=== PATIENT | female | born 1960 | race Caucasian/White ===

== ENCOUNTER 2017-07-07 05:24 | Inpatient (IN) | payer OTHER ==
[2017-07-01 13:09] LABS: HEMATOCRIT 37.4 % (37.0-47.0); HEMOGLOBIN 13.2 gm/dL (12.0-15.0); MCH 31.7 pg (26.0-34.0); MCHC 35.3 g/dL (28.0-37.0); MCV 89.7 fL (80.0-100.0); RBC 4.17 mil/uL (4.20-5.00); RDW 12.6 % (10.5-14.5); WBC 5.1 thou/uL (4.0-11.0)
[2017-07-01 13:14] LABS: URINE BILIRUBIN NEGATIVE (Negative); URINE BLOOD NEGATIVE (Negative); URINE COLOR YELLOW; URINE GLUCOSE-RANDOM* NEGATIVE (Negative); URINE KETONES NEGATIVE (Negative); URINE PROTEIN (DIPSTICK) NEGATIVE (Negative); URINE SPECIFIC GRAVITY >= 1.030 (1.003-1.035); URINE UROBILINOGEN 0.2 E.U./dl (0.2-1.0)
[2017-07-01 13:16] LABS: URINE LEUKOCYTES-REFLEX 1+ (Negative)
[2017-07-01 13:19] LABS: ALBUMIN 3.9 g/dL (3.4-5.0); CALCIUM 9.2 mg/dL (8.5-10.1); CREATININE 0.7 mg/dL (0.6-1.0); POTASSIUM 3.6 mmol/L (3.5-5.1)
[2017-07-01 13:21] LABS: CASTS None Seen /LPF (None Seen); CRYSTALS None Seen /LPF (None Seen); SQUAMOUS 0-3 Few /LPF (0-3); URINE RBC None Seen /HPF (0-2); URINE WBC-REFLEX 0-5 Rare /HPF (0-5)
[2017-07-01 13:22] LABS: PROTIME 10.7 Seconds (9.3-11.4)
[2017-07-07] VITALS (9 sets, daily range): BP systolic 108–145; BP diastolic 47–97
[~2017-07-07] VITALS: Ht 162.6 cm; Wt 74.4 kg
--- NOTE | ~2017-07-07 | EKG ---
[address] [address] ELECTROCARDIOGRAM REPORT Name: DEV COLLADO Room #: PRE IN [facility]#: [id number] Admission: Attend Phys: Hermelindo Crabtree MD Discharge: Date of : 56 Report #: [id number] THIS REPORT FOR: //name// [facility] Test Date: 2017-07-01 Test Time: 13:03:31 Pat Name: DEV COLLADO Department: Room: Gender: F Tile Ditcher: chinmay : 1960 Requested By: Hermelindo Crabtree Order Number: [id number] MD: Alvin Pedraza Measurements Intervals [place] Rate: 67 P: 53 WY: 205 QRS: -10 QRSD: 81 T: 41 QT: 404 QTc: 427 Interpretive Statements Sinus rhythm Borderline prolonged [place] interval Inferior infarct, old Anterior infarct, old Compared to ECG 11/20/2015 12:00:40 No significant changes Electronically Signed On 07-02-2017 12:39:35 CDT by Alvin Pedraza [email or web address] <ELECTRONICALLY SIGNED> By: Alvin Pedraza MD, [facility] 07/02/17 1239 1303 1303 Alvin Pedraza MD, [facility] /EPI
--- NOTE | ~2017-07-07 | O ---
[facility] [place] [address] OPERATIVE REPORT Name: DEV COLLADO Room #: 407-P ADM IN M.R.#: [id number] Admission: 07/07/17 Attend Phys: Hermelindo Crabtree MD Discharge: Date of : 56 Report #: [id number] THIS REPORT FOR: //name// CC: JN Crabtree DATE OF SERVICE: 07/07/2017 PREOPERATIVE DIAGNOSIS: Right knee degenerative joint disease, severe. POSTOPERATIVE DIAGNOSIS: Right knee degenerative joint disease, severe. PROCEDURE: Right total knee arthroplasty. SURGEON: Hermelindo Crabtree MD RN UROLOGY: YUE Joseph ANESTHETIC: General. INDICATIONS: See hospital H and P. IMPLANTS UTILIZED: Used a DePuy PFC knee system. We used a size 3 cruciate retaining femoral component, size 3 tibial tray with a 12.5 mm spacer and a 38 mm oval dome patella. DESCRIPTION OF PROCEDURE: After adequate general anesthesia had been obtained, the patient's right lower extremity was prepped and draped in the usual meticulous sterile fashion. Limb was exsanguinated with gravity and tourniquet inflated to 350 torr. Anterior midline incision was made, subQ divided sharply. Hemostasis obtained with electrocautery. A medial parapatellar incision was made. Infrapatellar fat pad excised. Medial release performed. The drill was used to drill the distal femur. This was enlarged, irrigated and suctioned, and the intramedullary guide placed the full length of the femur. Distal femoral cutting guide pinned the appropriate height, distal femoral cut was made. The measuring device determined a size 3 was appropriate size for this patient. We marked the distal femur, impacted the cutting guide into position and the anterior, posterior and chamfer cuts were made. Rongeur was used to remove additional osteophytes. At this time, the ACL was transected, tibia translated anteriorly, menisci were excised. Drill was used to drill central portion of the tibia. This hole was enlarged, irrigated, suctioned, and the intramedullary guide placed along the tibia. Proximal tibial cutting guide placed at appropriate height. Proximal [facility] [address] [place] [address] OPERATIVE REPORT Name: DEV COLLADO Room #: 407-P ADM IN M.R.#: [id number] Admission: 07/07/17 Attend Phys: Hermelindo Crabtree MD Discharge: Date of : 56 Report #: [id number] tibia cut was made. The 3 tray gave us the best coverage on the tibia. We then put the trial components in position and with a 12.5 spacer, he had the best flexion and extension gap and did have full extension. Patella was then measured, cutting guide clamped into place, patellar cut was made, 38 template gave us the best coverage. Pedicles were drilled, trial component put in position, it tracked normally. At this time, the knee was taken through several cycles of flexion, extension to determine optimal tibial tray rotation. The rotation was marked. Distal femur drilled. Trial components were removed. Tibial keel cuts were made. The knee was irrigated with both pulse lavage and antibiotic irrigation. Bone plugs were placed proximal tibia and distal femur. The cement was vacuum mixed and when it reached the appropriate consistency, the knee was thoroughly dried, the tibial tray was cemented in place. Excess cement was removed. The polyethylene was impacted in place and the femur impacted in place and the knee was taken out to 30 degrees of flexion with uniform compression placed across components. Patellar button was then cemented into place and again excess cement was removed. The irrigation was placed in the wound and allowed to rest in the wound until the cement fully cured. When it had done so, the knee was irrigated, dried thoroughly, and inspected. Drains were placed superolaterally both deep and superficial. The retinacular layer closed with combination of interrupted fgexkv-al-xksrj #1 Vicryl as well as running #1 Tevdek. SubQ closed with 2-0 Monocryl, skin closed with rosalie. Sterile compressive dressing applied. Tourniquet deflated. <ELECTRONICALLY SIGNED> By: Hermelindo Crabrtee MD 07/08/17 2149 0844 0907 Hermelindo Crabtree MD /nt
[~2017-07-07 05:24] MED LIST: ALEVE220 MG PO; CENTRUM SILVER1 EAC2 PO; HYDROCHLOROTH12.5 M1 PO; HYDROCHLOROTHIA25 M2 PO; LOSARTAN POTAS100 MG PO; NORCO 5-325 TA1 EACH PO; PERCOCET 10-321 EACH PO; STOOL SOFTENER100 MG PO; ULTRA-LIGHT RO1 EACH; VALTREX 500 MG500 MG PO; VITAMIN D-32000 UNIT PO; XARELTO10 MG PO
[2017-07-08 04:07] LABS: HEMATOCRIT 32.9 % (37.0-47.0); HEMOGLOBIN 11.7 gm/dL (12.0-15.0); MCH 32.1 pg (26.0-34.0); MCHC 35.4 g/dL (28.0-37.0); MCV 90.7 fL (80.0-100.0); RBC 3.63 mil/uL (4.20-5.00); RDW 12.8 % (10.5-14.5); WBC 10.5 thou/uL (4.0-11.0)
[2017-07-08 05:57] VITALS: BP 101/54
[2017-07-08 11:35] VITALS: BP 111/55
[2017-07-08 12:19] VITALS: BP 111/50
[2017-07-08 16:00] VITALS: BP 124/57
[2017-07-08 19:29] VITALS: BP 116/52
[2017-07-08 20:37] VITALS: BP 116/52
[2017-07-09] VITALS: BP 123/59
[2017-07-09 04:00] VITALS: BP 123/59
[2017-07-09 04:07] VITALS: BP 123/59
[2017-07-09 05:56] LABS: HEMATOCRIT 31.8 % (37.0-47.0); MCH 31.9 pg (26.0-34.0); MCHC 34.5 g/dL (28.0-37.0); MCV 92.5 fL (80.0-100.0); RBC 3.44 mil/uL (4.20-5.00); RDW 12.8 % (10.5-14.5); WBC 7.8 thou/uL (4.0-11.0)
[2017-07-09 08:25] VITALS: BP 112/53
[2017-07-09] MEDS ORDERED: XARELTO10 MG PO (10:32)
[2017-07-09 15:55] VITALS: BP 111/55
[2017-07-09 16:07] VITALS: BP 111/55
== END 2017-07-09 18:22 | disposition home or self-care (01) | DRG 470 ==
LOC: 4N 05:24 → TBA 05:24 → PRE 08:11 → 4N 11:26 → ENTRNSPT 07-09 16:48 → 4N 07-09 18:22
PROVIDERS: Orthopaedic Surgery
PROC: 0SRC0J9 Replacement of Right Knee Joint with Synthetic Substitute, Cemented, Open Approach (ICD-10-PCS; principal; 2017-07-07)
DX: M17.11 Unilateral primary osteoarthritis, right knee (principal); I10 Essential (primary) hypertension; M48.00 Spinal stenosis, site unspecified; Z96.642 Presence of left artificial hip joint; Z87.891 Personal history of nicotine dependence; Z79.899 Other long term (current) drug therapy
CPT/HCPCS: 10790; 50010; 50101; 50415; 50612; 50954; 51130; 51225; 51320; 51412; 51771; 52001; 53000; 53078; 53364; 56525; 56527; 62110; 62900; 70005

== ENCOUNTER → 2019-09-08 | Outpatient (CLI) | payer OTHER ==
[2019-09-08 07:38] LABS: HEMATOCRIT 41.3 % (37.0-47.0); HEMOGLOBIN 14.2 gm/dL (12.0-15.0); MCH 31.8 pg (26.0-34.0); MCHC 34.4 g/dL (28.0-37.0); MCV 92.4 fL (80.0-100.0); RBC 4.46 mil/uL (4.20-5.00); RDW 12.5 % (10.5-14.5); WBC 4.4 thou/uL (4.0-11.0)
[2019-09-08 08:11] LABS: INR 1.1
[2019-09-08 08:14] LABS: CALCIUM 9.7 mg/dL (8.5-10.1); CREATININE 0.7 mg/dL (0.6-1.0); POTASSIUM 3.9 mmol/L (3.5-5.1)
--- NOTE | 2019-09-08 09:21 | CATHLAB ---
[facility] [address] [place] [address] INVASIVE PROCEDURE REPORT Name: TOBIASDEV Room #: [id number] Admission: 09/08/19 Attend Phys: Alvin Pedraza, Discharge: Date of : 56 Report #: [id number] THIS REPORT FOR: //name// APPROVED REPORT Study performed: 09/08/2019 08:15:42 Patient Details Patient Status: Out-Patient Room #: The patient is a 58 year-old female Event Personnel Alvin Pedraza Clipping Marker, Mj Aguilar RN, Veronica Yap Jackson, Sherra RTKandy Monitor Procedures Performed 84209 Initial Mod Sed Same Phys/QHP Gr5y [id number] Indication Pericardial tamponade Procedure Narrative The Substernal Area^ was infiltrated with 2% Lidocaine subcutaneous anesthesia. A PINNACLE 6FR Sheath #[id number] sheath was inserted into the Substernal Area^. Coronary angiography was performed using coronary diagnostic catheters. The patient tolerated the procedure well and there were no complications associated with the procedure. A 6 FR PIGTAIL WAS USED TO PULL FLUID FROM HEART. TOTAL VOLUME WAS 370 ML. Sent for studies Intraoperative Conscious Sedation Sedation start time: 7:56 Case end Time: 8:44 Fentanyl 100 mcg Versed 1.5 mg Fluoro Time: 4.00 minutes Dose: DAP 39.00 cGycm2 4 mGy Conclusion See dicatation [facility] [address] [place] [address] INVASIVE PROCEDURE REPORT Name: DEV COLLADO Room #: [facility]#: [id number] Admission: 09/08/19 Attend Phys: Alvin Pedraza, Discharge: Date of : 56 Report #: [id number] 1. Successful removal of 370 mL of serosanguineous fluid from the pericardial space <ELECTRONICALLY SIGNED> By: Alvin Pedraza MD, FACC 09/08/19919 9 9 Alvin Pedraza MD, FACC /INF
--- NOTE | 2019-09-08 09:44 | 2DMMODE ---
[address] [address] 2 D/M-MODE ECHOCARDIOGRAM Name: TOBIASDEV CATIA Room #: REG CL [facility]#: [id number] Admission: 09/08/19 Attend Phys: Alvin Pedraza, Discharge: Date of : 56 Report #: [id number] THIS REPORT FOR: //name// APPROVED REPORT Study performed: 09/08/2019 08:00:45 EXAM: Comprehensive 2D, Doppler, and color-flow Echocardiogram Patient Location: director of cath lab Room #: 1 Status: routine BSA: 1.69 Rhythm: NSR Other Information Study Quality: Excellent Indications Pericardial Effusion Left Ventricle The left ventricle is normal size. There is normal left ventricular wall thickness. The left ventricular systolic function is normal. The left ventricular ejection fraction is within the normal range. LVEF is 55-60%. Right Ventricle The right ventricle is normal size. The right ventricular systolic function is normal. Atria Left atrium is at the upper limits of normal. The right atrium size is normal. Aortic Valve The aortic valve is normal in structure. Mitral Valve The mitral valve is normal in structure. Tricuspid Valve The tricuspid valve is normal in structure. Pulmonic Valve [address] [address] 2 D/M-MODE ECHOCARDIOGRAM Name: DEV COLLADO Room #: REG [facility]#: [id number] Admission: 09/08/19 Attend Phys: Alvin Pedraza, Discharge: Date of : 56 Report #: [id number] The pulmonary valve is normal in structure. Great Vessels The aortic root is normal in size. Pericardium There was a large effusion noted at the start of the study. Interval complete removal of the pericardial effusion. <Conclusion> Limited study performed as part of a pericardiocentesis The left ventricular systolic function is normal. LVEF is 55-60%. There was a large effusion noted at the start of the study. Interval complete removal of the pericardial effusion. <ELECTRONICALLY SIGNED> By: Alvin Pedraza MD, [facility] 09/08/1944 3 Alvin Pedraza MD, [facility] /INF
[2019-09-08 13:29] LABS: BF NUCLEATED CELLS 793; BF RBC 1966
[2019-09-08 13:31] LABS: CLARITY CLOUDY; COLOR YELLOW; SOURCE LEFT CHEST; TOTAL VOLUME 35 mL
[2019-09-08 15:10] LABS: BF MACROPHAGE 12; BF NEUTROPHILS 2
--- NOTE | 2019-09-08 17:17 | EKG ---
[place] [address] [facility] [place] [address] ELECTROCARDIOGRAM REPORT Name: DEV COLLADO Room #: REG [facility]#: [id number] Admission: 09/08/19 Attend Phys: Alvin Pedraza MD, Discharge: Date of : 56 Report #: [id number] THIS REPORT FOR: //name// [facility] Test Date: 2019-09-08 Test Time: 07:21:36 Pat Name: DEV COLLADO Department: Room: Gender: F Scientific Programmer: Glenys GONZALEZ : 1960 Requested By: Alvin Pedraza Order Number: [id number] MD: Alvin Pedraza Measurements Intervals [place] Rate: 63 P: -9 DE: 202 QRS: -7 QRSD: 76 T: 46 QT: 415 QTc: 425 Interpretive Statements Sinus rhythm Borderline prolonged [place] interval Anterior infarct, old Compared to ECG 07/01/2017 13:03:31 No significant changes Electronically Signed On 09-08-2019 17:16:44 PRESIDING STEWARD by Alvin Pedraza [email or web address] <ELECTRONICALLY SIGNED> By: Alvin Pedraza MD, [facility] 09/08/19 1716 0 0 Alvin Pedraza MD, [facility] /EPI
--- NOTE | 2019-09-09 07:50 | CATHLAB ---
[facility] [address] [place] [address] INVASIVE PROCEDURE REPORT Name: DEV COLLADO Room #: REG CL [facility]#: [id number] Admission: 09/08/19 Attend Phys: Alvin Pedraza, Discharge: Date of : 56 Report #: [id number] THIS REPORT FOR: //name// CC: Alvin Mast PROCEDURE: Pericardiocentesis. INDICATIONS: Tamponade. DESCRIPTION OF PROCEDURE: The potential benefits and risks of the procedure were discussed with the patient and her . Full written and informed consent was obtained. The patient was brought into the catheterization suite where her subxiphoid region was prepped and draped in a sterile fashion. She was sedated with intravenous Versed. 1% Xylocaine was used as local anesthetic. A 6-Uzbek sheath was placed in the pericardial space by the modified Seldinger technique. Fluoroscopy and echocardiogram confirmed placement. 370 mL of serosanguineous fluid was removed. The pericardial space was drained dry by echocardiogram confirmation. The fluid was sent for studies and cytology, cultures. She tolerated the procedure well. SUMMARY: Successful pericardiocentesis removing 370 mL of serosanguineous fluid. <ELECTRONICALLY SIGNED> By: Alvin Pedraza MD, [facility] 09/09/19 0750 0907 1124 Alvin Pedraza MD, FACC /nt
[2019-09-09 13:12] LABS: BODY FLUID ALBUMIN 3.1 g/dL (Not Estab.); BODY FLUID AMYLASE 54 U/L (()); BODY FLUID GLUCOSE 86 mg/dL (()); BODY FLUID LDH 276 IU/L (()); BODY FLUID PROTEIN 4.7 g/dL (())
[2019-09-10 08:36] LABS: SOURCE CHEST
--- NOTE | 2019-09-13 13:07 | PATH ---
[facility] [place] [address] PATHOLOGY RPT PROCEDURE Name: DEV COLLADO Room #: REG [facility]#: [id number] Admission: 09/08/19 Date of : 56 Discharge: Report #: [id number] Path Case #: [id number] Note LCA Accession Number: [id number] TESTS RESULT FLAG UNITS REF RANGE LAB Clinician Provided Cytology Information No. of containers..01 Other (Miscellaneous) Source: [A] 01 CHEST FLUID DIAGNOSIS: [A] 02 CHEST FLUID POSITIVE FOR MALIGNANT CELLS. ADENOCARCINOMA IS PRESENT. METASTATIC CARCINOMA IS PRESENT. THIS INTERPRETATION INCLUDES EVALUATION OF A CELL BLOCK. Comment: Multiple stains were performed on the percardial fluid obtained (case number, [id number]; please refer to a separate report for complete details). Based on the stains, the malignant cells which morphologically resemble the cells identified in the pericardial fluid likely represent a metastatic adenocarcinoma of lung origin. Dr. Noel has seen this case and concurs with the diagnosis rendered. Findings of this case were telephoned to Dr. Rachel Thompson's nurse at 11:05 AM on 09/12/19. Pathologist ICD10: 02 J91.0 Signed out by: 02 Domonique Billings MD, Pathologist NPI- [id number] Performed by: Clara Sandra, Electroencephalographic Technician ([facility]) Gross description: 01 10 ML, ORANGE, CLOUDY /LCS 10/25/1840 0000 Local FLAG LEGEND: L-Low Normal,H-High Normal,LL-Alert Low,HH-Alert High <-Panic Low,>-Panic High,A-Abnormal,AA-Critical Abnormal Performed at: [facility] [address] [place] [address] Jj Daugherty MD, 02 [facility] [address] [address] Domonique Billings MD, Specimen Comment: A courtesy copy of this report has been sent to [phone], [facility] [address] [place] [address] PATHOLOGY RPT PROCEDURE Name: DEV COLLADO Room #: REG ROMAINE Kiser#: [id number] Admission: 09/08/19 Date of : 56 Discharge: Report #: [id number] Path Case #: [id number] Specimen Comment: [phone] Specimen Comment: [id number] Specimen Comment: Report sent to / DR SALCEDO Performed at: [address], [place], [place] [id number] MD Jj Daugherty MD Phone: [phone]
--- NOTE | 2019-09-13 13:07 | PATH ---
[facility] [place] [address] PATHOLOGY RPT PROCEDURE Name: DEV COLLADO Room #: REG [facility].#: [id number] Admission: 09/08/19 Date of : 56 Discharge: Report #: [id number] Path Case #: [id number] Note LCA Accession Number: [id number] TESTS RESULT FLAG UNITS REF RANGE LAB Clinician Provided Cytology Information No. of containers..01 Other (Miscellaneous) Source: [A] 01 PERICARDIAL FLUID DIAGNOSIS: [A] 02 PERICARDIAL FLUID POSITIVE FOR MALIGNANT CELLS. METASTATIC CARCINOMA IS PRESENT. THIS INTERPRETATION INCLUDES EVALUATION OF A CELL BLOCK. Comment: Based on the stains performed on the pericardial fluid, (please refer to a separate report for details)the malignancy involving the pericardial fluid likely is a metastatic adenocarcinoma of lung origin. Dr. Noel has seen this case and concurs with my diagnosis. Pathologist ICD10: 02 I31.3 Signed out by: 02 Domonique Billings MD, Pathologist NPI- [id number] Performed by: Clara Sandra, Heart Nurse ([facility]) Gross description: 01 25 ML, ORANGE, CLOUDY /LCS 10/25/1840 0000 Local FLAG LEGEND: L-Low Normal,H-High Normal,LL-Alert Low,HH-Alert High <-Panic Low,>-Panic High,A-Abnormal,AA-Critical Abnormal Performed at: 01 [facility] [address] [place] [address] Jj Daugherty MD, [address] [address] Domonique Billings MD, Specimen Comment: A courtesy copy of this report has been sent to [phone] Specimen Comment: [phone] Specimen Comment: [id number] Specimen Comment: Report sent to / DR SALCEDO [address] [address] PATHOLOGY RPT PROCEDURE Name: DEV COLLADO Room #: REG ROMAINE Kiser#: [id number] Admission: 09/08/19 Date of : 56 Discharge: Report #: [id number] Path Case #: [id number] Performed at: 01 [facility] [place] [address], [place], [place] [id number] MD Jj Daugherty MD Phone: [phone]
--- NOTE | 2019-09-13 13:58 | PATH ---
[facility] [address] [place] [address] [place] [address] PATHOLOGY RPT PROCEDURE Name: DEV COLLADO Room #: REG ROMAINE Gonzalez.Kandy.#: [id number] Admission: 09/08/19 Date of : 56 Discharge: Report #: [id number] Path Case #: [id number] Note LCA Accession Number: [id number] TESTS RESULT FLAG UNITS REF RANGE LAB Clinician Provided Cytology Information No. of containers..01 Other (Miscellaneous) Source: [A] 01 PERICARDIAL FLUID DIAGNOSIS: [A] 01 PERICARDIAL FLUID, PERICARDOCENTESIS POSITIVE FOR MALIGNANT CELLS. METASTATIC ADENOCARCINOMA IS PRESENT, LIKELY LUNG ORIGIN. COMMENT: Multiple properly controlled immunohistochemical stains and a properly controlled special stain are performed on the cell block and interpreted as follows: Calretinin - Reactive in these rare mesothelial cells present within the background WT-1 - No nuclear reactivity present Desmin - Reactive within the rare mesothelial cells present within the background supporting the reactive nature CD15 and BerEP4 - Strong membranous reactivity present TAG-72 - Non-reactive HBME-1 - Scattered rare cells showing membranous reactivity TTF-1 - Strong nuclear reactivity present within most of the glandular collections/epithelial cells Mucicarmine - Intracytoplasmic mucin identified within rare cells These findings are supportive of metastatic carcinoma within the pericadial fluid, likely of lung origin. Dr. Ebony Noel has seen a career services representative slide of the cell block and concurs with my diagnosis/interpretation. Findings of this case are telephoned to Ms. Mclean, Dr. Pedraza's nurse, at 11:05 a.m. on 09/12/19. (IUV/db; 09/13/2019) Pathologist ICD10: 01 C38.0, I31.3 Signed out by: Domonique Billings MD, Pathologist NPI- [id number] Performed by: 02 Clara Sandra, Policewoman (ASCP) Gross description: 11 16 ML, ORANGE, CLOUDY /LCS 10/25/1840 0000 Local FLAG LEGEND: L-Low Normal,H-High Normal,LL-Alert Low,HH-Alert High <-Panic Low,>-Panic High,A-Abnormal,AA-Critical Abnormal [address] [address] PATHOLOGY RPT PROCEDURE Name: DEV COLLADO [facility] [id number] Admission: 09/08/19 Date of : 56 Discharge: Report #: [id number] Path Case #: [id number] Performed at: [address] [address] Domonique Billings MD, 02 [facility] [address] [place] [address] Jj Daugherty MD, Specimen Comment: A courtesy copy of this report has been sent to [phone] Specimen Comment: [phone] Specimen Comment: [id number] Specimen Comment: Report sent to / DR SALCEDO Performed at: 01 [facility] [address] [place], [place] [address] MD Domonique Billings MD Phone: [phone]
== END | disposition home or self-care (01) ==
LOC: ULTRA 06:57 → CATH 06:57
PROVIDERS: Internal Medicine
DX: I31.3 Pericardial effusion (noninflammatory) (principal); I31.4 Cardiac tamponade; J90 Pleural effusion, not elsewhere classified; I10 Essential (primary) hypertension; Z98.890 Other specified postprocedural states; Z87.891 Personal history of nicotine dependence; Z96.651 Presence of right artificial knee joint; Z96.642 Presence of left artificial hip joint; Z79.899 Other long term (current) drug therapy

== ENCOUNTER → 2019-09-30 | Outpatient (CLI) | payer OTHER ==
[2019-09-30 15:31] LABS: BF NUCLEATED CELLS 796; BF RBC 3420
[2019-09-30 15:34] LABS: CLARITY HAZY; COLOR YELLOW; TOTAL VOLUME 60 mL
[2019-09-30 17:36] LABS: BF MACROPHAGE 15; BF NEUTROPHILS 3; SOURCE RT CHEST
[2019-10-01 10:12] LABS: SOURCE PLEURAL
[2019-10-02 09:09] LABS: BODY FLUID ALBUMIN 3.1 g/dL (Not Estab.); BODY FLUID AMYLASE 56 U/L (()); BODY FLUID GLUCOSE 109 mg/dL (()); BODY FLUID LDH 283 IU/L (()); BODY FLUID PROTEIN 4.4 g/dL (())
--- NOTE | 2019-10-04 15:07 | PATH ---
[facility] [address] [place] [address] PATHOLOGY RPT PROCEDURE Name: DEV COLLADO Room #: REG ROMAINE Khan.#: [id number] Admission: 09/30/19 Date of : 56 Discharge: Report #: [id number] Path Case #: [id number] Note LCA Accession Number: [id number] TESTS RESULT FLAG UNITS REF RANGE LAB Clinician Provided Cytology Information No. of containers..01 Other (Miscellaneous) Source: [A] 01 PLEURAL FLUID DIAGNOSIS: [A] 02 PLEURAL FLUID POSITIVE FOR MALIGNANT CELLS. METASTATIC ADENOCARCINOMA IS PRESENT. THIS INTERPRETATION INCLUDES EVALUATION OF A CELL BLOCK. Comment: Metastatic adenocarcinoma is identified. It is morphologically similar to the prior fluid, [id number] (please refer to a separate report) for details. Pathologist ICD10: 02 J91.0 Signed out by: 02 Domonique Billings MD, Pathologist NPI- [id number] Performed by: Laura Burr, Magnetizer ([facility]) Gross description: 01 15ML, YELLOW, CLOUDY /LCS 10/03/2019 1257 Local FLAG LEGEND: L-Low Normal,H-High Normal,LL-Alert Low,HH-Alert High <-Panic Low,>-Panic High,A-Abnormal,AA-Critical Abnormal Performed at: [address] [place] [address] Jj Daugherty MD, [address] [address] Domonique Billings MD, Specimen Comment: A courtesy copy of this report has been sent to [phone] Specimen Comment: [id number] Specimen Comment: Report sent to Performed at: [address], [place], [place] [address] [address] [address] PATHOLOGY RPT PROCEDURE Name: DEV COLLADO Room #: JAYCE Kiser#: [id number] Admission: 09/30/19 Date of : 56 Discharge: Report #: [id number] Path Case #: [id number] MD Jj Daugherty [place] Phone: [phone]
== END | disposition home or self-care (01) ==
LOC: ULTRA 09-29 12:38
PROVIDERS: Internal Medicine
DX: C34.92 Malignant neoplasm of unspecified part of left bronchus or lung (principal); J91.0 Malignant pleural effusion